=== PATIENT | female | born 1940 | race Caucasian/White ===

== ENCOUNTER 2016-10-27 08:00 | Outpatient (CLI) | payer MEDICARE, OTHER | END 2016-10-27 08:01 | disposition home or self-care (01) | DX: E78.2 Mixed hyperlipidemia (principal); Z79.899 Other long term (current) drug therapy ==

== ENCOUNTER 2017-02-24 11:25 | Outpatient (CLI) | payer MEDICARE, OTHER ==
--- NOTE | 2017-02-27 16:12 | Mammography Report ---
DIGITAL SCREENING MAMMOGRAM: 02/24/2017 CLINICAL INDICATION: A 76-year-old with personal history of benign left breast biopsy for screening. COMPARISON: 11/2015, 10/2014, 09/2013, 09/2012, 08/2011, 08/2010, 08/2009, 2007, 12/2006. TECHNIQUE: Routine CC and MLO projections were obtained of the breasts. FINDINGS: The breasts demonstrate scattered fibroglandular densities bilaterally. Coarse and punctate, typically benign calcifications are present. Postoperative changes in the left inner breast are stable. No suspicious masses, clustered microcalcifications, or regions of architectural distortion are identified. IMPRESSION: BENIGN FINDINGS. RECOMMENDATION: Routine annual screening unless otherwise clinically indicated. BIRADS CATEGORY 2 - BENIGN FINDINGS. STANDARD QUALIFYING STATEMENTS 1. This examination was reviewed with the aid of Computed-Aided Detection (CAD). 2. A negative or benign imaging report should not delay biopsy if clinically suspicious findings are present. Consider surgical consultation if warranted. More than 5% of cancers are not identified by imaging. 3. Dense breasts may obscure an underlying neoplasm. JOB #: [id number] EXT JOB #: [id number] MTDD
== END 2017-02-24 11:26 | disposition home or self-care (01) ==
LOC: DI 11:25
PROVIDERS: ATTEND Physician Assistant Medical
DX: Z12.31 Encounter for screening mammogram for malignant neoplasm of breast (principal)
CPT/HCPCS: 77067

== ENCOUNTER 2017-03-06 12:10 | Outpatient (CLI) | payer MEDICARE, OTHER ==
--- NOTE | 2017-03-06 13:13 | XRAY Report ---
TWO-VIEW CHEST: 03/06/2017 CLINICAL INDICATION: Wheezing, fatigue, coughing. COMPARISON: 04/21/2009 FINDINGS: Frontal and lateral views of the chest demonstrate a normal cardiac silhouette. Right upp er lobe pulmonary nodule is stable. No new consolidation, effusion, or pneumothorax is present. IMPRESSION: STABLE RIGHT UPPER LOBE HAMARTOMA. NO EVIDENCE OF ACUTE CARDIOPULMONARY DISEASE. JOB #: [id number] EXT JOB #:[id number]
== END 2017-03-06 12:11 | disposition home or self-care (01) ==
LOC: DI 12:10
PROVIDERS: ATTEND Physician Assistant Medical
DX: Q85.9 Phakomatosis, unspecified (principal)
CPT/HCPCS: 71020

== ENCOUNTER 2017-11-16 08:00 | Outpatient (CLI) | payer MEDICARE, OTHER ==
[2017-11-16 13:14] LABS: BASOPHILS # (AUTO) 0.1 10^3/uL (0.0-0.1); BASOPHILS % (AUTO) 1.5 %; EOSINOPHILS # (AUTO) 0.2 10^3/uL (0.0-0.7); EOSINOPHILS % (AUTO) 4.5 %; HGB - HEMOGLOBIN 13.5 g/dL (12.0-16.0); LYMPHOCYTES # (AUTO) 1.8 10^3/uL (1.5-3.5); LYMPHOCYTES % (AUTO) 34.5 %; MEAN CORPUSCULAR HEMOGLOBIN 31.3 pg (27.0-31.0); MEAN CORPUSCULAR HGB CONC 34.7 g/dL (32.0-36.0); MEAN CORPUSCULAR VOLUME 90.3 fL (81.0-99.0); MONOCYTES # (AUTO) 0.5 10^3/uL (0.0-1.0); NEUTROPHILS # (AUTO) 2.6 10^3/uL (1.5-6.6); NEUTROPHILS % (AUTO) 50.5 %; PLT - PLATELET COUNT 257 10^3/uL (130-450); RED BLOOD COUNT 4.29 10^6/uL (4.20-5.40); RED CELL DISTRIBUTION WIDTH 13.2 % (12.0-15.0); WHITE BLOOD COUNT 5.1 x10^3/uL (4.8-10.8)
[2017-11-16 13:35] LABS: ALBUMIN 4.3 g/dL (3.2-5.5); ALBUMIN/GLOBULIN RATIO 1.6 (1.0-2.2); ALKALINE PHOSPHATASE 57 IU/L (42-121); ALT ALANINE AMINOTRANSFERASE 21 IU/L (10-60); AST ASPARTATE AMINOTRANSFERASE 22 IU/L (10-42); BILIRUBIN,TOTAL 0.8 mg/dL (0.2-1.0); BUN - BLOOD UREA NITROGEN 15 mg/dL (6-20); CALCIUM 8.9 mg/dL (8.5-10.3); CARBON DIOXIDE - CO2 24 mmol/L (21-32); CHLORIDE 105 mmol/L (101-111); CHOL/HDL RATIO 4.7 (<4.4); CHOLESTEROL 275 mg/dL; CREATININE 0.6 mg/dL (0.4-1.0); GFR - MDRD 97 (>89); GLUCOSE 113 mg/dL (70-100); HDL CHOLESTEROL 59 mg/dL; LDL CHOLESTEROL,CALCULATED 193 mg/dL; LDL/HDL RATIO 3.3 (<4.4); SODIUM 136 mmol/L (135-145); VLDL CHOLESTEROL 23 mg/dL
[2017-11-16 13:57] LABS: HB2 TOTAL 14.3 g/dL; HEMOGLOBIN A1C 0.58 g/dL; HEMOGLOBIN A1C % 5.9 % (4.6-6.2)
== END 2017-11-16 08:01 ==
LOC: LAB.R 08:00
PROVIDERS: ATTEND Physician Assistant Medical
DX: R73.09 Other abnormal glucose (principal); E78.2 Mixed hyperlipidemia; R73.9 Hyperglycemia, unspecified; Z79.899 Other long term (current) drug therapy; E03.9 Hypothyroidism, unspecified
CPT/HCPCS: 80053; 80061; 83036; 83721; 84443; 85025

== ENCOUNTER 2018-03-06 10:13 | Outpatient (CLI) | payer MEDICARE, OTHER ==
[2018-03-06 14:46] LABS: ALT ALANINE AMINOTRANSFERASE 22 IU/L (10-60); AST ASPARTATE AMINOTRANSFERASE 23 IU/L (10-42); LDL CHOLESTEROL,DIRECT 82 mg/dL
== END 2018-03-06 10:14 | disposition home or self-care (01) ==
LOC: LAB.R 10:13
PROVIDERS: ATTEND Physician Assistant Medical
DX: Z79.899 Other long term (current) drug therapy (principal); E78.5 Hyperlipidemia, unspecified
CPT/HCPCS: 83721; 84450; 84460

== ENCOUNTER 2018-03-09 13:13 | Outpatient (CLI) | payer MEDICARE, OTHER ==
--- NOTE | 2018-03-09 14:18 | DEXA Report ---
Procedure Date: 03/09/2018 Accession Number: [id number] / [id number] Procedure: DEX - Dexa Spine and/or Hip CPT Code: FULL RESULT: EXAM: Dexa Spine and/or Hip DATE: 03/09/2018 1:40 PM CLINICAL HISTORY: POSTMENOPAUSAL TECHNIQUE: Dual energy x-ray absorptiometry (DXA) was performed on a [employer] System. Regions measured are the AP Spine, femoral neck, and if needed forearm. COMPARISON: None. In accordance with the International Society for Clinical Densitometry (ISCD) guidelines, data from previous exams may be reanalyzed using current recommendations and techniques. This is done to allow a more accurate basis for comparison with the current study. FINDINGS: The data for the lumbar spine is as follows: BMD (g/cm/cm) T-SCORE Z-SCORE REGION L1 1.022 -0.9 0.2 L2 1.217 0.1 1.2 L3 1.343 1.2 2.3 L4 1.353 1.3 2.3 TOTAL 1.250 0.6 1.7 NOTE: All evaluable vertebrae are used for classification The data for the hip is as follows: BMD (g/cm/cm) T-SCORE Z-SCORE REGION Neck 0.858 -1.3 0.2 TOTAL 0.897 -0.9 0.4 NOTE: The femoral neck or total proximal femur, whichever is lowest, is used for classification. IMPRESSION: THE WHO CLASSIFICATION BASED ON THE INTERNATIONAL REFERENCE STANDARD IS OSTEOPENIA. THE FRACTURE RISK IS INCREASED. RECOMMENDATION: Patients with diagnosis of osteoporosis or osteopenia should have regular bone mineral density assessment. For those eligible for Medicare, routine testing is allowed once every 2 years. Testing frequency can be increased for patients who have rapidly progressing disease or for those who are receiving medical therapy to restore bone mass. COMMENT: World Health Organization (WHO) definitions for osteoporosis and osteopenia: NORMAL BMD: T-score at -1.0 or higher, fracture risk is low OSTEOPENIA BMD: T-score between -1.0 and -2.5, fracture risk is increased. OSTEOPOROSIS BMD: T-score at -2.5 or lower, fracture risk is high. National Osteoporosis Foundation recommends: 1. Obtain adequate dietary calcium (at least 1200 mg per day) and vitamin D (400-800 international units per day). 2. Participate, as appropriate, in regular weightbearing and muscle-strengthening exercise. 3. Avoid tobacco use and reduce alcohol and caffeine intake. 4. For more detailed information see the website at www.NOF.org.
== END 2018-03-09 13:14 | disposition home or self-care (01) ==
LOC: DI 13:13
PROVIDERS: ATTEND Physician Assistant Medical
DX: M85.88 Other specified disorders of bone density and structure, other site (principal)
CPT/HCPCS: 77080

== ENCOUNTER 2018-03-09 13:15 | Outpatient (CLI) | payer MEDICARE, OTHER ==
--- NOTE | 2018-03-12 15:22 | Mammography Report ---
Procedure Date: 03/09/2018 Accession Number: [id number] / [id number] Procedure: MATTY - Screening Mammo Dig Bilat CPT Code: FULL RESULT: EXAM: Screening Mammo Dig Bilat DATE: 03/09/2018 1:49 PM CLINICAL HISTORY: 77-year-old with history of benign biopsy for screening TECHNIQUE: Bilateral CC and MLO views were obtained. COMPARISON: 02/24/2017, 11/18/2015, 10/22/2014, 09/24/2013, 09/12/2012, 08/09/2011, 08/24/2010 FINDINGS: The breasts demonstrate scattered fibroglandular densities bilaterally. Postbiopsy changes in the left breast are stable. Coarse and punctate, typically benign calcifications are present. No suspicious masses, clustered microcalcifications, or regions of architectural distortion are identified. IMPRESSION: Benign findings RECOMMENDATION: Routine annual screening unless otherwise clinically indicated. BIRADS CATEGORY 2: Benign findings STANDARD QUALIFYING STATEMENTS: 1. This examination was reviewed with the aid of Computer-Aided Detection (CAD). 2. A negative or benign imaging report should not delay biopsy if clinically suspicious findings are present. Consider surgical consultation if warrented. More than 5% of cancers are not identified by imaging. 3. Dense breasts may obscure an underlying neoplasm.
== END 2018-03-09 13:16 | disposition home or self-care (01) ==
LOC: DI 13:15
PROVIDERS: ATTEND Physician Assistant Medical
DX: Z12.31 Encounter for screening mammogram for malignant neoplasm of breast (principal)
CPT/HCPCS: 77067

== ENCOUNTER 2021-12-31 23:52 | Emergency (ER) | payer MEDICARE, OTHER ==
[2022-01-01 00:32] LABS: BASOPHILS % (AUTO) 0.5 %; EOSINOPHILS # (AUTO) 0.3 10^3/uL (0.0-0.7); EOSINOPHILS % (AUTO) 3.5 %; HCT - HEMATOCRIT 41.3 % (37.0-47.0); HGB - HEMOGLOBIN 13.7 g/dL (12.0-16.0); LYMPHOCYTES # (AUTO) 2.1 10^3/uL (1.5-3.5); LYMPHOCYTES % (AUTO) 27.1 %; MEAN CORPUSCULAR HEMOGLOBIN 30.8 pg (27.0-31.0); MEAN CORPUSCULAR HGB CONC 33.2 g/dL (32.0-36.0); MEAN CORPUSCULAR VOLUME 92.8 fL (81.0-99.0); MEAN PLATELET VOLUME 9.7 fL (7.9-10.8); MONOCYTES # (AUTO) 0.8 10^3/uL (0.0-1.0); MONOCYTES % (AUTO) 9.5 %; NEUTROPHILS # (AUTO) 4.7 10^3/uL (1.5-6.6); NEUTROPHILS % (AUTO) 59.1 %; PLT - PLATELET COUNT 267 10^3/uL (130-450); RED BLOOD COUNT 4.45 10^6/uL (4.20-5.40); WHITE BLOOD COUNT 7.9 x10^3/uL (4.8-10.8)
[2022-01-01 00:42] LABS: ALBUMIN 4.4 g/dL (3.2-5.5); ALBUMIN/GLOBULIN RATIO 1.4 (1.0-2.2); BILIRUBIN,TOTAL 0.7 mg/dL (0.2-1.0); CALCIUM 9.3 mg/dL (8.5-10.3); CREATININE 0.5 mg/dL (0.4-1.0); POTASSIUM 3.8 mmol/L (3.5-5.0); TOTAL PROTEIN 7.5 g/dL (6.7-8.2)
--- NOTE | 2022-01-01 00:58 | XRAY Report ---
PROCEDURE: Chest 1 View X-Ray INDICATIONS: Chest pain TECHNIQUE: One view of the chest was acquired. COMPARISON: 03/06/2017 FINDINGS: Surgical changes and devices: None. Lungs and pleura: No pleural effusions or pneumothorax. Lungs containing a chronic right perihilar 1.8 cm nodule, but are otherwise clear. Mediastinum: Mediastinal contours appear normal. Heart size is normal. Bones and chest wall: No suspicious bony lesions. Overlying soft tissues appear unremarkable. IMPRESSION: No acute cardiopulmonary disease. Stable right midlung nodule. Reviewed by: Radha Thomas MD on 01/01/2022 12:57 AM PDT Approved by: Radha Thomas MD on 01/01/2022 12:57 AM PDT Station ID: [id number]
--- NOTE | 2022-01-01 01:28 | ED Physician Documentation ---
History of Present Illness - Stated complaint Stated Complaint: IRREGULAR HEARTBEAT - Chief complaint Chief Complaint: Cardiac - History obtained from History obtained from: Patient - History of Present Illness Timing: Enter time (19:00), Today Pain level max: 0 Pain level now: 0 Improved by: no ameliorating factors but symptoms have resolved Worsened by: no exacerbating factors - Additonal information Additional information: c/o palpitations, sensation of irregular but not rapid palpitations , onset approximately 7 PM tonight while at home at rest watching TV. She has h/o PVCs although this felt different in that it was sustained and constant until resolution (typically she has skipped beat palpitations but not constant as it was tonight) . Denies chest pain, denies dyspnea Review of Systems Cardiac: reports: Palpitations. 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 - Present Medications Home Medications: Ambulatory Orders Medication Instructions Recorded Confirmed Atorvastatin [Lipitor] 20 mg PO DAILY 01/01/22 01/01/22 Levothyroxine Sodium 137 mcg PO DAILY 01/01/22 01/01/22 [Levothyroxine] Metoprolol Tartrate [Lopressor] 50 mg PO BID 01/01/22 01/01/22 - Allergies Allergies/Adverse Reactions: Allergies Allergy/AdvReac Type Severity Reaction Status Date / Time No Known Drug Allergies Allergy Verified 01/01/22 00:08 - Social History Does the pt smoke?: No Smoking Status: Never smoker Does the pt drink ETOH?: Yes Does the pt have substance abuse?: No - Immunizations Immunizations are current?: Yes PD ED PE NORMAL - Vitals Vital signs reviewed: Yes - General General: Alert and oriented X 3, No acute distress, Well developed/nourished - Cardiac Cardiac: RRR, No murmur - Respiratory Respiratory: No respiratory distress, Clear bilaterally - Extremities Extremities: No edema Results - Vitals Vitals: Oxygen O2 Source Room air - EKG (time done) #1 Rate: Rate (enter#) (78) Rhythm: NSR Intervals: Wide QRS, LBBB #2 Rate: Rate (enter#) (62) Rhythm: NSR [place]: Normal, Anterior hemiblock Intervals: Normal MO QRS: Normal Ischemia: Normal ST segments Other comments: Other comments (PVC) - Labs Labs: Laboratory Tests 01/01/22 01/01/22 01/01/22 00:20 00:20 00:20 WBC 7.9 RBC 4.45 Hgb 13.7 Hct 41.3 MCV 92.8 MCH 30.8 MCHC 33.2 RDW 13.0 Plt Count 267 MPV 9.7 Neut # (Auto) 4.7 Lymph # (Auto) 2.1 [place] # (Auto) 0.8 Eos # (Auto) 0.3 Baso # (Auto) 0.0 Absolute Nucleated RBC 0.00 Nucleated RBC % 0.0 Sodium 141 Potassium 3.8 Chloride 104 Carbon Dioxide 23 Anion Gap 14.0 H BUN 19 Creatinine 0.5 Estimated GFR (MDRD) 119 Glucose 116 H Calcium 9.3 Total Bilirubin 0.7 AST 26 ALT 25 Alkaline Phosphatase 79 Troponin I High Sens 5.2 Total Protein 7.5 Albumin 4.4 Globulin 3.1 Albumin/Globulin Ratio 1.4 Lipase 50 - Rads (name of study) chest xray Radiology: Prelim report reviewed, See rad report PD MEDICAL DECISION MAKING - ED course Complexity details: reviewed results, re-evaluated patient, considered differential, d/w patient ED course: presents with irregular palpitations which resolved by the time of this H+P. 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 She initially is found to be in sinus rhythm but with LBBB, which she is not familiar with and thus is presumably of new onset. No concerning findings on CXR, CBC, ER abdominal panel, and normal hs-cTn. Without intervention, she is noted on monitor to have resolution of her LBBB and subsequently frequent PVCs which slowly but steadily decreased in frequency during ED stay. Results d/w patient, advised to follow up with PMD and return precautions discussed. Departure - Departure Disposition: 01 Home, Self Care Clinical Impression: Palpitations, Left bundle branch block Condition: Good Instructions: Bundle Branch Block Left About, ED Palpitations Comments: Your initial EKG showed a LEFT BUNDLE BRANCH BLOCK (information on this is provided in these discharge sheets). However, this resolved during your ER stay. Your tests are all reassuring (chest xray, blood tests including a cardiac enzyme (troponin)). Follow up with your credit or loans officer regarding the intermittent left bundle branch block. Discharge Date/Time: 01/01/22 02:29
[2022-01-01 02:16] VITALS: BP 161/50
== END 2022-01-01 02:29 | disposition home or self-care (01) ==
LOC: ED 23:52
DX: I44.7 Left bundle-branch block, unspecified (principal); I48.91 Unspecified atrial fibrillation
CPT/HCPCS: 36415; 80053; 83690; 84484; 85025; 93005; 99283; 99284

== ENCOUNTER 2022-05-30 02:19 | Outpatient (CLI) | payer MEDICARE | END 2022-05-30 02:20 | disposition critical access hospital (66) | LOC: EMS 02:19 | DX: I48.91 Unspecified atrial fibrillation (principal); I44.7 Left bundle-branch block, unspecified | CPT/HCPCS: A0425; A0427 ==

== ENCOUNTER 2022-05-30 02:35 | Emergency (ER) | payer MEDICARE, OTHER ==
--- NOTE | 2022-05-30 02:34 | ED Physician Documentation ---
History of Present Illness - Stated complaint Stated Complaint: IRREG HEARTBEAT - History obtained from History obtained from: Patient - History of Present Illness Timing: Enter time (01:00), Today Pain level max: 0 Pain level now: 0 Improved by: no ameliorating factors Worsened by: no exacerbating factors - Additonal information Additional information: BIBA for rapid and irregular palpitations, sudden onset 1 AM this morning while lying in bed awake. Denies chest pain, dyspnea. She has h/o similar episodes but never persisting (typically few seconds , but as long as 15 minutes) and spontaneously resolving. 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 Review of Systems Constitutional: denies: Fever, Chills, Sweats Cardiac: reports: Palpitations. denies: Chest pain / pressure, Pedal edema Respiratory: reports: Reviewed and negative GI: reports: Reviewed and negative PD PAST MEDICAL HISTORY - Past Medical History Past Medical History: Yes Cardiovascular: Hypertension, High cholesterol Endocrine/Autoimmune: HyPOthyroidism - Past Surgical History Past Surgical History: No - Present Medications Home Medications: Ambulatory Orders Medication Instructions Recorded Confirmed Atorvastatin [Lipitor] 20 mg PO DAILY 01/01/22 05/30/22 Levothyroxine Sodium 137 mcg PO DAILY 01/01/22 05/30/22 [Levothyroxine] Metoprolol Tartrate [Lopressor] 50 mg PO BID 01/01/22 05/30/22 - Allergies Allergies/Adverse Reactions: Allergies Allergy/AdvReac Type Severity Reaction Status Date / Time No Known Drug Allergies Allergy Verified 05/30/22 02:43 - Living Situation Living Arrangement: reports: At home PD ED PE NORMAL - Vitals Vital signs reviewed: Yes - General General: Alert and oriented X 3, No acute distress, Well developed/nourished - Neck Neck: No JVD - Respiratory Respiratory: No respiratory distress, Clear bilaterally - Abdomen Abdomen: Soft - Extremities Extremities: No edema PD ED PE EXPANDED - Cardiac Cardiac: Tachy, Irregularly irregular Results - Vitals Vitals: Oxygen O2 Source Room air - EKG (time done) No standard instances Rate: Rate (enter#) (141) Rhythm: Atrial fibrillation [place]: LAD Intervals: LBBB - Labs Labs: Laboratory Tests 05/30/22 05/30/22 05/30/22 02:50 02:50 02:50 WBC 7.7 RBC 4.19 L Hgb 13.0 Hct 38.2 MCV 91.2 MCH 31.0 MCHC 34.0 RDW 13.0 Plt Count 258 MPV 9.7 Neut # (Auto) 5.1 Lymph # (Auto) 1.7 [place] # (Auto) 0.6 Eos # (Auto) 0.2 Baso # (Auto) 0.1 Absolute Nucleated RBC 0.00 Nucleated RBC % 0.0 Sodium 140 Potassium 4.1 Chloride 106 Carbon Dioxide 24 Anion Gap 10.0 BUN 17 Creatinine 0.6 Estimated GFR (MDRD) 96 Glucose 167 H Calcium 9.5 Total Bilirubin 0.5 AST 25 ALT 24 Alkaline Phosphatase 77 Troponin I High Sens 14.2 Total Protein 7.0 Albumin 4.2 Globulin 2.8 Albumin/Globulin Ratio 1.5 Lipase 39 - Rads (name of study) chest xray Radiology: Prelim report reviewed, See rad report PD MEDICAL DECISION MAKING - ED course Complexity details: reviewed old records, reviewed results, re-evaluated patient, considered differential, d/w patient ED course: Presents in new-onset atrial fibrillation with RVR. Her heart rate improved with cardizem IVP, with second dose due to gradually increasing heart rate. She remained in atrial fibrillation after second dose of cardizem and gradually the heart rate again was increasing to 130s-140s and thus other options were reviewed with patient with my recommendation being electrocardioversion. Risks/benefits discussed at length and after consideration of this, patient agrees with electrocardioversion. Profol drawn up and in syringe at bedside and RT was just arriving when patient spontaneously converted to NSR with HR in 60s. She had resolution of symptoms with this. She was subsequently observed in ED for 30 minutes with no recurrence of symptoms nor arrhythmias. Discharged after return precautions were reviewed. Departure - Departure Disposition: 01 Home, Self Care Clinical Impression: Atrial fibrillation Condition: Good Instructions: ED Afib Comments: The results of lidia's blood tests and chest xray are unremarkable. You were in rapid atrial fibrillation for most of the ER stay but you converted into a normal (sinus) rhythm and normal heart rate spontaneously. No further testing nor treatment is needed at this time. Follow up with your energy advisor for reevaluation. Discharge Date/Time: 05/30/22 06:10
[2022-05-30] MEDS ORDERED: diltiaZEM INJ 5 MG/ML VIAL IVP STA ×2 (02:47→03:05)
[2022-05-30 02:56] LABS: BASOPHILS # (AUTO) 0.1 10^3/uL (0.0-0.1); BASOPHILS % (AUTO) 0.6 %; EOSINOPHILS # (AUTO) 0.2 10^3/uL (0.0-0.7); HCT - HEMATOCRIT 38.2 % (37.0-47.0); LYMPHOCYTES # (AUTO) 1.7 10^3/uL (1.5-3.5); LYMPHOCYTES % (AUTO) 22.4 %; MEAN CORPUSCULAR VOLUME 91.2 fL (81.0-99.0); MEAN PLATELET VOLUME 9.7 fL (7.9-10.8); MONOCYTES # (AUTO) 0.6 10^3/uL (0.0-1.0); MONOCYTES % (AUTO) 7.8 %; NEUTROPHILS # (AUTO) 5.1 10^3/uL (1.5-6.6); NEUTROPHILS % (AUTO) 65.9 %; PLT - PLATELET COUNT 258 10^3/uL (130-450); RED BLOOD COUNT 4.19 10^6/uL (4.20-5.40); WHITE BLOOD COUNT 7.7 x10^3/uL (4.8-10.8)
[2022-05-30 03:10] LABS: ALBUMIN 4.2 g/dL (3.2-5.5); ALBUMIN/GLOBULIN RATIO 1.5 (1.0-2.2); BILIRUBIN,TOTAL 0.5 mg/dL (0.2-1.0); CALCIUM 9.5 mg/dL (8.5-10.3); CREATININE 0.6 mg/dL (0.4-1.0); POTASSIUM 4.1 mmol/L (3.5-5.0)
[2022-05-30] MEDS ORDERED: MORPHINE 2 MG/ML CARPUJECT IVP STA (05:07)
[2022-05-30] MEDS ORDERED: PROPOFOL 200 MG/20 ML VIAL IVP STA (05:07)
[2022-05-30 05:49] VITALS: BP 142/59
--- NOTE | 2022-05-30 08:16 | XRAY Report ---
PROCEDURE: Chest 1 View X-Ray INDICATIONS: palpitations TECHNIQUE: One view of the chest was acquired. COMPARISON: Chest x-ray 01/01/2022, 03/06/2017 FINDINGS: Surgical changes and devices: None. Lungs and pleura: Right perihilar pulmonary nodule is again identified without interval change. It i s stable since 2017. Mediastinum: There is a mild fullness to the right perihilar region, overall nonspecific. Heart size is normal. Bones and chest wall: No suspicious bony lesions. Overlying soft tissues appear unremarkable. IMPRESSION: Stable right perihilar pulmonary nodule since 2017. Mild fullness in the right perihilar region, overall nonspecific. This could be secondary to patient rotation. Reviewed by: Jazmín Padilla MD on 05/30/2022 8:15 AM PDT Approved by: Jazmín Padilla MD on 05/30/2022 8:15 AM PDT Station ID: [id number]
== END 2022-05-30 06:10 | disposition home or self-care (01) ==
LOC: EDUNIT# → ED 02:35
DX: I48.20 Chronic atrial fibrillation, unspecified (principal); I10 Essential (primary) hypertension
CPT/HCPCS: 36415; 80053; 83690; 84484; 85025; 92960; 93005; 99283

== ENCOUNTER 2023-10-18 22:58 | Outpatient (CLI) | payer MEDICARE | END 2023-10-18 23:59 | disposition short-term general hospital (02) | LOC: EMS 22:58 | DX: I10 Essential (primary) hypertension (principal); R51.9 Headache, unspecified; R11.0 Nausea; I44.7 Left bundle-branch block, unspecified; I49.3 Ventricular premature depolarization | CPT/HCPCS: A0425; A0427; A0888 ==